=== PATIENT | female | born 1995 | race Two or more races ===

== ENCOUNTER 2018-02-19 21:19 | Emergency (ER) | payer MEDICAID ==
[~2018-02-19] VITALS: Ht 157.5 cm; Wt 66.0 kg
[2018-02-20 01:21] VITALS: BP 112/74
== END 2018-02-20 01:21 | disposition home or self-care (01) ==
LOC: ER 22:28
DX: L50.0 Allergic urticaria (principal); J45.909 Unspecified asthma, uncomplicated; Z88.0 Allergy status to penicillin; Z90.89 Acquired absence of other organs
CPT/HCPCS: 99282

== ENCOUNTER 2019-11-09 22:18 | Emergency (ER) | payer MEDICAID ==
[~2019-11-09] VITALS: Ht 157.5 cm; Wt 73.0 kg
[2019-11-10] MEDS ORDERED: KETOROLAC 60MG/2ML VIAL IM STA (02:47)
[2019-11-10] MEDS ORDERED: ONDANSETRON 4MG ODT PO STA (02:47)
[2019-11-10 03:19] LABS: CHLORIDE 104 mEq/L (98-107)
[2019-11-10 03:22] LABS: BASOPHILS % 0.4 % (0.0-2.0); EOSINOPHILS % 1.7 % (0.0-5.0); HEMOGLOBIN. 11.1 g/dL (12.0-16.0); LYMPHOCYTES % 16.8 % (20.0-50.0); MEAN CORPUSCULAR HEMOGLOBIN 26.5 pg (28.0-32.0); MEAN CORPUSCULAR VOLUME 78.7 fL (81.0-99.0); MEAN PLATELET VOLUME 8.5 fl (7.4-10.4); MONOCYTES % 6.8 % (2.0-8.0); NEUTROPHILS % 74.3 % (40.0-76.0); PLATELET 319 x1000/uL (130-400); RED BLOOD CELL COUNT 4.19 mill/uL (4.2-5.4); RED CELL DISTRIBUTION WIDTH 13.8 % (11.6-14.6)
[2019-11-10 06:36] VITALS: BP 110/70
== END 2019-11-10 06:37 | disposition home or self-care (01) ==
LOC: ER 22:18
DX: K86.1 Other chronic pancreatitis (principal); J45.909 Unspecified asthma, uncomplicated; Z91.012 Allergy to eggs
CPT/HCPCS: 36415; 76700; 80053; 83690; 85025; 96372; 99284; J1885; Q0162